=== PATIENT | female | born 1950 | race Two or more races ===

== ENCOUNTER 2023-10-07 04:45 | Day surgery (SDC) | payer OTHER ==
[~2023-10-07 04:45] MED LIST: GRALISE600 MG; LANSOPRAZOLE30 MG; PROLIA60 MG/1 ML; SYNTHROID; VITAMINA; ZESTRIL10 M1; [UNRECOGNIZED DRUG - OTHER]; asmanex; travatan; vitamin d3
[2023-10-07] MEDS ORDERED: DESMOPRESSIN ACETATE 4 MCG/ML AMPUL IV ONE (08:00)
[2023-10-07] MEDS ORDERED: CEFAZOLIN SODIUM 1,000 MG VIAL ONE (08:13)
[2023-10-07] MEDS ORDERED: CEFAZOLIN SODIUM 1,000 MG VIAL IV ONE (11:30)
[2023-10-07] MEDS ORDERED: ERTAPENEM SODIUM 1,000 MG VIAL IV ONE (13:00)
[2023-10-07] MEDS ORDERED: BUPIVACAINE HCL 30 ML VIAL IJ ONE (13:00)
[2023-10-11] MEDS ORDERED: PROTONIX40 M1 PO (21:36)
[2023-10-11] MEDS ORDERED: PROLIA60 MG/1 ML SUBCUTANEO (21:37)
== END 2023-10-07 14:55 | disposition home or self-care (01) ==
LOC: CIR.AMB 04:45
PROVIDERS: ATTEND Surgery Surgery of the Hand
DX: G56.01 Carpal tunnel syndrome, right upper limb (principal); M67.843 Other specified disorders of tendon, right hand; Z88.6 Allergy status to analgesic agent